=== PATIENT | male | born 1965 | race Caucasian/White ===

== ENCOUNTER 2019-12-11 10:43 | Emergency (ER) | payer OTHER, SELFPAY ==
[2019-12-11 10:54] VITALS: BP 112/72; PULSE 88; RESP 20; TEMP 37.2; O2SAT 97
--- NOTE | 2019-12-11 11:41 | ED.BACK ---
HPI - Back Pain/Injury General Chief Complaint: Back Pain/Injury Stated Complaint: Back Pain Time Seen by Provider: 12/11/19 11:38 Source: patient and RN notes reviewed Mode of arrival: ambulatory Limitations: no limitations History of Present Illness HPI Narrative: 54-year-old male presents with concern for left posterior shoulder strain. Reports 6 days ago he was pulling down an attic door and felt a sudden pain in his left shoulder blade. He reports since then he has been using Advil, heat with only temporary relief. He reports these measures will dull and ease the pain, however it does not go away. He reports finding a difficult position sleeping. He denies shortness of breath, chest pain, diaphoresis. Reports tingling in the left arm. MD elicited complaint: other (Shoulder pain) Related Data Home Medications Medication Instructions Recorded Confirmed diphenhydramine HCl 25 mg capsule 25 mg PO Q6H PRN 08/22/19 12/11/19 loperamide 2 mg capsule 2 mg PO Q2-4H PRN 08/22/19 12/11/19 loratadine 5 mg-pseudoephedrine ER 1 tablet PO Q12H 08/22/19 12/11/19 120 mg tablet,extended release,12hr tadalafil 5 mg tablet 5 mg PO DAILY 08/22/19 12/11/19 Allergies Allergy/AdvReac Type Severity Reaction Status Date / Time No Known Allergies Allergy Verified 12/11/19 10:59 Review of Systems Review of Systems: Narrative: CONSTITUTIONAL: Denies malaise, chills, sweats, or fever. CARDIOVASCULAR: Denies chest pain, palpitations, or edema. RESPIRATORY: Denies cough or dyspnea. GASTROINTESTINAL: Denies abdominal pain, nausea, vomiting, diarrhea SKIN: Denies redness, bruising, rash or itching. MUSCULOSKELETAL: Reports posterior left shoulder blade pain NEUROLOGIC: Denies weakness, reports tingling in the left arm, denies numbness All systems reviewed & are unremarkable except as noted in HPI and below PMFSH Past Medical History Medical History (Updated 12/11/19 @ 11:51 by Nini Edwards NP) Diverticulosis Family History Family History (Updated 04/25/16 @ 23:21 by DOCTOR UNKNOWN) Mother Patient's mother is in good health Father Family history of diabetes mellitus in first degree relative Other Diabetes mellitus Family history of cardiovascular disease Hypertension Social History Social History Smoking status: Never smoker Alcohol intake: never Comments At time of signature, agree with nursing past medical, surgical, social and family history. There is no relevant family history pertinent to the presenting complaint Exam Narrative: Exam Narrative: GENERAL: Well-appearing, well-nourished, and in no acute distress. HEAD: Normocephalic, atraumatic. EYES: PERRLA and EOMI. NECK: Supple. No lymphadenopathy. CHEST: Clear to auscultation. No respiratory distress. HEART: Regular rate and rhythm. Distal pulses palpable and equal, cap refill <3 seconds MUSCULOSKELETAL: Normal range of motion and strength in all extremities; 5/5 strength with shoulder flexion and extension. Normal sensation in dermatomal distributions with sensitivity to light touch and pain. No midline back tenderness to palpation. No paraspinal tenderness. Transfers from lying to sitting to standing. SKIN: Warm, dry, no rash. No ecchymosis, erythema, open wounds to back. NEURO: No focal deficits. Alert and oriented x3. Reflexes intact. Normal gait. PSYCH: Normal mood and affect Course Course Emergency Course: Patient is aware of diagnosis, understands and agrees to treatment plan. Anticipatory guidance given. Patient agrees to follow-up as directed and is aware of reasons to seek care at the emergency department. Portions of this record may have been created with voice recognition software Vital Signs Vital signs: Vital Signs Temperature 99 F 12/11/19 10:54 Pulse Rate 88 12/11/19 10:54 Respiratory Rate 20 12/11/19 10:54 Blood Pressure 112/72 12/11/19 10:54 Pulse Oximetry 97
== END 2019-12-11 11:55 | disposition home or self-care (01) ==
PROVIDERS: Emergency Provider Nurse Practitioner; PCP Family Medicine
DX: M25.512 Pain in left shoulder (principal); N40.0 Benign prostatic hyperplasia without lower urinary tract symptoms
CPT/HCPCS: 99213; G0463

== ENCOUNTER 2020-08-10 10:23 | Outpatient (CLI) | payer OTHER, SELFPAY ==
--- NOTE | ~2020-08-10 | CT_ITS ---
EXAMINATION: CT abdomen pelvis wo con EXAM DATE: 08/10/2020 10:46 INDICATION: R10.32 - Left lower quadrant pain . TECHNIQUE: Spiral CT of the abdomen and pelvis was performed without contrast. Axial, coronal and sag ittal images were reviewed. The dose-length product (DLP) for this examination was 1324.01 mGy-cm. The exposure was tailored according to patient size (auto mA exposure control), and iterative reconst ruction (ASIR) was used as additional dose reduction technique. Comparison is made to prior examinati on from 07/21/2013. FINDINGS: There is no nephrolithiasis or hydronephrosis. The prostate is unremarkable. The bladder is unremarkable. The liver, spleen, adrenal glands and pancreas are unremarkable. Gallbladder is u nremarkable. No biliary obstruction. There is no retroperitoneal or pelvic lymphadenopathy. Small u mbilical, left inguinal fat-containing hernias. The appendix is normal. There is mild scattered colonic diverticulosis. There is no adjacent inflamm atory change to suggest diverticulitis. The stomach and small bowel are unremarkable. There is expec champ amount of colonic stool. No free intraperitoneal gas. The heart is normal in size. There are no pericardial or pleural effusions. The lung bases are unremarkable. The bones are unremarkable. IMPRESSION: 1. Small umbilical, left inguinal fat-containing hernias. 2. Mild colonic diverticulosis. Reviewed, dictated and finalized at location B. [facility]
== END 2020-08-10 10:24 | disposition home or self-care (01) ==
PROVIDERS: PCP Family Medicine; Visit Provider Family Medicine
DX: R10.32 Left lower quadrant pain (principal); K40.90 Unilateral inguinal hernia, without obstruction or gangrene, not specified as recurrent; K42.9 Umbilical hernia without obstruction or gangrene; K57.30 Diverticulosis of large intestine without perforation or abscess without bleeding
CPT/HCPCS: 74176

== ENCOUNTER 2021-03-19 10:11 | Emergency (ER) | payer OTHER, SELFPAY ==
--- NOTE | 2021-03-19 10:13 | ED.EXTPRO ---
HPI - Extremity Problem General Chief complaint: Extremity Problem,Nontraumatic Stated complaint: right calf pain Time Seen by Provider: 03/19/21 10:14 Source: patient and RN notes reviewed History of Present Illness HPI Narrative: Patient is a 55-year-old male who presents the urgent care with complaints of right calf pain. Patient states that at softball he went to take off running and felt a pop in the back of the calf. Patient states that it is excruciating pain to bear any weight and he has been taking Aleve, elevating with ice, and using crutches. Patient states the calf seems really hard . Patient denies of any fall. Denies of any blunt force trauma to the leg. No other acute complaints. No acute distress noted. Patient aware of the plan of care. Some parts of this dictation were generated by voice recognition software and may contain typographical and/or grammatical inaccuracies. Related Data Home Medications Medication Instructions Recorded Confirmed tadalafil 5 mg tablet 5 mg PO DAILY 08/22/19 03/19/21 Allergies Allergy/AdvReac Type Severity Reaction Status Date / Time No Known Allergies Allergy Verified 08/10/20 09:34 Review of Systems Review of Systems: Narrative: CONSTITUTIONAL: Denies fever, chills, or sweats. EYES: Denies visual changes, redness, or discharge. ENT: Denies rhinorrhea, congestion, sore throat, or otalgia. CARDIOVASCULAR: Denies chest pain, palpitations, or edema. RESPIRATORY: Denies cough or dyspnea. GASTROINTESTINAL: Denies abdominal pain, nausea, vomiting, or diarrhea. GENITOURINARY: Denies dysuria or hematuria. SKIN: Denies rash or itching. MUSCULOSKELETAL: Reports of severe right calf pain NEUROLOGIC: Denies headache, numbness, or weakness. All other systems reviewed are negative, except as documented in HPI. [facility] Past Medical History Medical History (Updated 03/19/21 @ 10:29 by JESS Valente) Diverticulosis Family History Family History (Updated 04/25/16 @ 23:21 by DOCTOR UNKNOWN) Mother Patient's mother is in good health Father Family history of diabetes mellitus in first degree relative Other Diabetes mellitus Family history of cardiovascular disease Hypertension Social History Social History (Updated 08/10/20 @ 09:35 by Keysha Mcneal) Smoking status: Never smoker Second hand tobacco smoke exposure: No Alcohol intake: never Substance use: never Substance use type: does not use Gender identity (if verbalized by the patient): Male Comments At the time of my signature, I reviewed and agree with the nursing past medical, surgical, social, and family history. There is no relevant family history pertinent to the patient complaint. Exam Narrative: Exam Narrative: GENERAL: This is a well-nourished, well-developed patient, in no apparent distress. HEAD: normocephalic, atraumatic. EYES: PERRL. Sclera clear/white. Vision is grossly intact. EARS: External ears normal NOSE: External nose normal with no obvious nasal discharge, nares without redness, no rhinorrhea. THROAT: Mucous membranes moist NECK: Neck supple CARDIOVASCULAR: Regular rate and rhythm without murmurs, gallops, or rubs. RESPIRATORY: Clear to auscultation. Breath sounds equal bilaterally. No wheezes, rales, or rhonchi. SKIN: warm, intact with no suspicious lesions or rash, good texture and turgor. NEURO: awake, alert, and oriented to person, place and time. There were no obvious focal neurologic abnormalities. EXTREMITIES: Mild bilateral nonpitting edema to lower ankles. No obvious bruising, erythema, or edema noted to the right calf. Firmness to the right calf. Range of motion to right lower extremity within normal limits. Positive strong right pedal pulse with capillary refill less than 2 seconds. Course Vital Signs Vital signs: Vital Signs Temperature 98.9 F 03/19/21 10:21 Pulse Rate 108 H 03/19/21 10:21 Respiratory Rate 24 H 03/19/21 10:21
[2021-03-19 10:21] VITALS: BP 147/91; PULSE 108; RESP 24; TEMP 37.2; O2SAT 97
== END 2021-03-19 10:37 | disposition home or self-care (01) ==
PROVIDERS: Emergency Provider Nurse Practitioner Family; PCP Family Medicine
DX: S86.111A Strain of other muscle(s) and tendon(s) of posterior muscle group at lower leg level, right leg, initial encounter (principal); X50.9XXA Other and unspecified overexertion or strenuous movements or postures, initial encounter; Y93.64 Activity, baseball
CPT/HCPCS: 99213; G0463

== ENCOUNTER 2023-08-28 10:05 | Emergency (ER) | payer OTHER, SELFPAY ==
--- NOTE | 2023-08-28 10:12 | ED.GENADULT ---
HPI - General Adult General Chief complaint: Upper Respiratory Infection Stated complaint: Headache,Congestion,Cough Source: patient, RN notes reviewed and old records reviewed Mode of arrival: ambulatory Limitations: no limitations History of Present Illness HPI narrative: 57-year-old male presents to [facility] with complaint sinus congestion, cough, myalgia, irritated throat, and pain with coughing that started yesterday. Patient states taking DayQuil for symptoms. Patient denies shortness of breath, chest pain, fevers, nausea vomiting, or weakness. Related Data Home Medications Medication Instructions Recorded Confirmed tadalafil 5 mg tablet (Cialis) 5 mg PO DAILY 08/22/19 08/28/23 Allergies Allergy/AdvReac Type Severity Reaction Status Date / Time No Known Allergies Allergy Verified 08/28/23 10:06 Review of Systems Constitutional: Constitutional: Reports no additional constitutional complaints, Denies fatigue, Denies fever(s) and Denies weakness Eyes: Eyes: Reports no additional eye complaints ENT: Reports nasal congestion and Reports sore throat Cardiovascular: Cardiovascular: Reports no additional cardiovascular complaints Respiratory: Respiratory: Reports chest congestion, Reports cough, Denies dyspnea and Denies wheezing Neurologic: Reports system reviewed and no additional complaints, except as documented [facility] Past Medical History Medical History Collagenous colitis Decreased libido Diverticulosis Enlarged nevus Rupture of right gastrocnemius muscle Wears glasses Surgical History Surgical History H/O: vasectomy Family History Family History Mother Patient's mother is in good health Father Family history of diabetes mellitus in first degree relative Other Diabetes mellitus Family history of cardiovascular disease Hypertension Social History Social History Smoking status: Current every day smoker Tobacco type: smokeless tobacco Second hand tobacco smoke exposure: No Alcohol intake: current Drinks per week: 2 Substance use: never Substance use type: does not use Living arrangements: with family Occupation/Education: occupation Gender identity (if verbalized by the patient): Male Sexual Orientation (if Verbalized by the Patient): Straight or Heterosexual Comments At the time of my signature, I reviewed and agree with the nursing past medical, surgical, social, and family history. There is no relevant family history pertinent to the patient complaint. Exam Const: General: cooperative, healthy appearing, no acute distress and well nourished Nutritional Appearance: well nourished Orientation/consciousness: patient oriented x3 Limitations: no limitations HENMT: Head: normal to inspection and normocephalic Ears: external ears normal, TM's normal bilaterally, mastoids normal and Abnormal EAC present Face/Nose/Sinus: normal facial exam Face and sinus: normal facial exam Mouth: Yes Normal oral and palatal mucosa present, Yes oropharynx normal and Yes moist mucous membranes Throat: tonsils normal, uvula midline and no uvular edema Eyes: General: appearance normal, both eyes and all related structures Sclera: sclerae normal Pupils: Equal, round and reactive pupils present Resp: Effort & Inspection: normal respiratory effort, able to speak in complete sentences, no audible wheezes, no cough, no respiratory distress and no retractions Auscultation: clear to auscultation bilaterally, no crackles, no rales, no rhonchi and no wheezes Cardio: Rate: regular rate Rhythm: regular rhythm Skin: General skin exam: normal color and no rashes or lesions noted Neuro: General: patient oriented x3 Cranial nerves: Yes Equal, round and reactive p
[2023-08-28 10:17] VITALS: BP 147/79; PULSE 105; RESP 20; TEMP 36.9; O2SAT 97
== END 2023-08-28 10:36 | disposition home or self-care (01) ==
PROVIDERS: Emergency Provider Registered Nurse; PCP Family Medicine
DX: J02.0 Streptococcal pharyngitis (principal); Z20.822 Contact with and (suspected) exposure to COVID-19; F17.290 Nicotine dependence, other tobacco product, uncomplicated; Z98.52 Vasectomy status
CPT/HCPCS: 87426; 87804; 87880; 99213; C9803; G0463

== ENCOUNTER 2024-12-31 09:09 | Outpatient (CLI) | payer OTHER, SELFPAY ==
--- OUTSIDE RECORDS SUMMARY | 2024-12-31 09:17 | XMS_ITS | Referral Summary ---
Author Organization [facility] [address] Address [address] [place] [address] Care Team Providers Care Well Testing Operator Name Role Phone Zoltan Henry MD Primary Care Provider Allergies No known active allergies Medications tadalafiL (CIALIS) 5 mg tablet 04/08/2020 Active montelukast (SINGULAIR) 10 mg tablet 03/05/2020 Active rosuvastatin (CRESTOR) 10 mg tablet 04/09/2020 Active loratadine (CLARITIN) 10 mg tablet Take 1 tablet (10 mg total) by mouth daily Active diphenhydrAMINE (BENADRYL) 25 mg capsule Take 1 tablet/caps ule (25 mg total) by mouth 2 (two) times a day Active loperamide HCl (IMODIUM A-D ORAL) Take by mouth Active aspirin 81 mg enteric coated tablet Take 1 tablet (81 mg total) by mouth daily Active multivitamin-min erals-lutein (Multivitamin 50 Plus) tablet Take by mouth Active triamcinolone (KENALOG) 0.1 % creamIndications :Chronic eczematous otitis externa of both ears Apply to both ears BID x 14 days then as needed 30 g 2 10/18/2024 Active Active Problems Problem Noted Date Diagnosed Date Chronic eczematous otitis externa of both ears 0 03/22/2024 Pre-syncope 05/23/2020 Chest pain 05/23/2020 Equivocal stress test 05/23/2020 Palpitations 05/23/2020 Hyperlipidemia LDL goal <100 05/23/2020 Social History Tobacco Use Types Packs/Day Years Used Date Smoking Tobacco: Never Smokeless Tobacco: Current Chew Alcohol Use Standard Drinks/Week Comments Yes 1 (1 standard drink = 0.6 oz pur e alcohol) Sex and Gender Information Value Date Recorded Sex Assigned at Not on file Legal Sex Male 9:07 AM CDT Gender Identity Not on file Sexual Orientation Not on file Last Filed Vital Signs Vital Sign Reading Time Taken Comments Blood Pressure 118/84 05/23/2020 8:16 AM CDT Pulse 92 05/23/2020 8:16 AM CDT Temperature 36.6 C (97.8 F) 06/19/2020 8:15 AM CDT Respiratory Rate 20 03/22/2024 12:1 3 PM CDT Oxygen Saturation 96% 05/23/2020 8:16 AM CDT Inhaled Oxygen Concentration - - Weight 106.6 kg (235 lb 0.2 oz) 024 12:13 PM CDT Height 180.3 cm (5' 11 ) 03/22/2024 12: 13 PM CDT Body Mass Index 32.78 03/22/2024 12:13 PM CDT Plan of Treatment Not on file Insurance [facility] Care Teams Well Testing Operator Relationship Specialty Start Date End Date Zoltan Henry MD [address] [facility] [address] [place] [address] PCP - General Family Medicine 02/06/20
--- OUTSIDE RECORDS SUMMARY | 2024-12-31 09:17 | XMS_ITS | Clinical Summary ---
Author Organization [facility] Address [address] [place] [address] Care Team Providers Care Vacuum Cooker Operator Name Role Phone Zoltan Henry MD Primary Care Provider [phone] Source Comments [facility],non-owned Affiliates and Associated Physician Practices is amultiple site organization consisting of ambulatory clinics and hospital sitesin [place], [place], [place] and [place]. This disclosure is being madepursuant to the Care Everywhere program and may not contain all information available regarding this patient. Last updated 18.[facility] [employer] Social History Tobacco Use Types Packs/Day Years Used Date Smoking Tobacco: Never Assessed Sex and Gender Information Value Date Recorded Sex Assigned at Not on file Gender Identity Not on file Sexual Orientation Not on file Plan of Treatment Health Maintenance Due Date Last Done Comments COLOGUARD (AGES 45-75) - COL ON CA SCREENING 1965 COLON MONITORING 1965 COLONOSCOPY - COLON CA SCREENING 1965 CT COLONOGRAPHY - COLON CA SCREENING 1965 Colorectal Cancer Screening 1965 FIT - COLON CA SCREENING 1965 FLEX SIG - COLON CA SCREENING 1965 LIPID TESTING 1965 HIV SCREENING 1980 HEPATITIS C SCREENING 11/28/1983 DTAP/TDAP/TD VACCINES (1 - Tdap) 1984 HEPATITIS B VACCINE (1 of 3 - 19+ 3-dose series) 1984 PNEUMOCOCCAL VACCINE 50+ (1 of 1 - PCV) 12/03/2015 ZOSTER VACCINE (1 of 2) 12/03/2015 COVID-19 VACCINE ( - 2023-2 5 season) 2024 INFLUENZA VACCINE (#1) 2024 DEPRESSION SCREENING 09/28/2024 HIB VACCINE Aged Out No longer eligi ble based on patient's age to complete this topic HPV VACCINE Aged Out No longer eligi ble based on patient's age to complete this topic MENINGOCOCCAL (Group B) VACC INE SHARED DECISION-MAKING Aged Out No longer eligibl e based on patient's age to complete this topic MENINGOCOCCAL GROUPS A/C/Y/W VACCINE Aged Out No longer eligible b ased on patient's age to complete this topic PNEUMOCOCCAL VACCINE Aged Out No long er eligible based on patient's age to complete this topic Care Teams Vacuum Cooker Operator Relationship Specialty Start Date End Date Zoltan Henry MD [address] [place] [address] PCP - General 10/06/18
--- OUTSIDE RECORDS SUMMARY | 2024-12-31 09:17 | XMS_ITS | Clinical Summary ---
Author Organization [facility] [place] [address] Address [address] [place] [address] Care Team Providers Care Pet Handler Name Role Phone Zoltan Henry MD Primary [...] Palpitations 05/23/2020 Hyperlipidemia LDL goal <100 05/23/2020 Surgical History Surgery Date Site/Laterality Comments VASECTOMY EYE SURGERY PKR Medical History Medical History Date Comments Allergic rhinitis Ear problems Tinnitus Family History Medical History Relation Name Comments Cancer Father Diabetes Father Prostate cancer Father No Known Problems Mother Diabetes Paternal Grandmother Relation Name Status Comments Father (Age 70) Mother Alive Paternal Grandmother Sister Alive Social History Tobacco Use Types Packs/Day Years Used Date Smoking Tobacco: Never Smokeless Tobacco: Current Chew Alcohol Use Standard Drinks/Week Comments Yes 1 (1 standard drink = 0.6 oz pur e alcohol) Sex and Gender Information Value Date Recorded Sex Assigned at Not on file Legal Sex Male 9:07 AM CDT Gender Identity Not on file Sexual Orientation Not on file Obstetrics History Last Filed Vital Signs Vital Sign Reading [...] 03/22/2024 12:13 PM CDT Plan of Treatment Health Maintenance Due Date Last Done Comments Colon Cancer Screening-Colonoscopy 1965 Depression Screening 1965 Hepatitis C Screening 1965 Prostate Cancer Screening-PSA 1965 DTaP/Tdap/Td Vaccine (1 - Tdap) 1976 Hepatitis B Screening 12/03/1983 Regular Well Visit/Exam 18-64 12/03/1983 Zoster Vaccine (1 of 2) 12/03/2015 Influenza Vaccine (#1) 2024 9, 07/21/2018, 08/25/2017, Additional history exists Pneumococcal vaccine <65 Aged Out No longer eligible based on patient's age to complete this topic Insurance [facility] CLAIMS Member Subscriber Plan / Payer ( fective 2020-Present) Name:Demarcus Whiteside Relation to Subscriber:Self Name:Demarcus Whiteside Payer ID:[id number] (NAIC) Group ID:Not on file Type: Address: [address] [facility] Member Subscriber Plan / Payer ( fective 2023-Present) Name:Demarcus Whiteside Relation to Subscriber:Self Name:Demarcus Whiteside Payer ID:[id number] (NAIC) Group ID:Not on file Type: Address: [place] [id number] Care Teams Pet Handler Relationship Specialty Start Date End Date Zoltan Henry MD [address] [facility] [address] [place] [address] PCP - General Family Medicine 02/06/20
--- OUTSIDE RECORDS SUMMARY | 2024-12-31 09:17 | XMS_ITS | Encounter Summary ---
Author Organization [facility] Address [address] [place] [address] Care Team Providers Care Cold Roller Name Role Phone Zoltan Henry MD Primary Care Provider [phone] Encounter Details Date Type Department Care Team (Late st Contact Info) Description 10/16/2023 Lab Requisition [facility] - DermPath Lab [address] [address], [place] [address] Amando Fowler MD [facility] DERMATOLOGY [address] [place] [phone] Dermatitis, unspecified Social History Tobacco Use Types Packs/Day Years Used Date Smoking Tobacco: Never Assessed Sex and Gender Information Value Date Recorded Sex Assigned at Not on file Gender Identity Not on file Sexual Orientation Not on file documented as of this encounter Plan of Treatment Not on file documented as of this encounter Procedures Procedure Name Priority Date/Time Associated Diagnosis Comments DERMATOPATHOLOGY Routine 10/15/2023 3:33 AM MANAGER OF INFORMATION Dermatitis, unspecified documented in this encounter Results * DERMATOPATHOLOGY (10/15/2023 3:33 AM MANAGER OF INFORMATION) Case Report Dermatopathology Report Case: [id number] Authorizing Provider: Amando Fowler MD Collected: 10/15/2023 03:33 AM Ordering Location: [facility] DermPath Lab Received: 10/17/2023 11:21 AM Pathologist: Nancy Delgadlilo MD Specimen: Skin, left postauricular skin 12:20 PM MANAGER OF INFORMATION DERMATOPATHOLOGY LABORATORY Final Diagnosis Specimen A. 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 Eczema vs Seborrheic Dermatitis 12:20 PM [facility] DERMATOPATHOLOGY LABORATORY Gross Description Specimen A: Received is one formalin filled container labeled with the patient's name and designated left postauricular skin. The specimen consists of a shave biopsy measuring 9x6x2 mm. Jar 0. 12:20 PM [facility] DERMATOPATHOLOGY LABORATORY Microscopic Description Specimen A. SKIN, left postauricular skin: There is focal parakeratosis and spongiosis of the epidermis. Foci of intracorneal neutrophils and rare intraepidermal Langerhans cell microabscesses are present. In the dermis there is a mainly superficial perivascular lymphoid infiltrate. Focal interface changes are noted. Sections show a perifollicular lymphohistiocytic infiltrate. Eosinophils are not seen. Intrafollicular bacteria and Demodex mites are present. Grocott's methenamine silver (GMS) stain is negative for fungal elements in the sections examined. COMMENT: The histologic differential diagnosis includes seborrheic dermatitis, eczematous dermatitis, and less likely a hypersensitivity reaction, such as to contact and drug given the lack of eosinophils. A superimposed component of bacterial or Demodex folliculitis cannot be excluded. 12:20 PM [facility] DERMATOPATHOLOGY LABORATORY Disclaimer An external and internal positive and negative controls are appropriate for the histochemical, immunohistochemical and immunofluorescence stain(s) in this case (if any), except where stated explicitly. The performance characteristics of the stain(s) cited in this report were developed and its performance characteristic determined by the Dermatopathology Laboratory at [facility], directed by Dr. Brendan Amor. These tests need not be, and therefore are not, approved by the [place] Food and Drug Administration. The tests are used for clinical purposes. Billing Codes Specimen Charges Stain Charges 21213 1 48488 1 12:20 PM [facility] DERMATOPATHOLOGY LABORATORY Embedded Images 12:20 PM [facility] DERMATOPATHOLOGY LABORATORY Pathology/Cytolo gy TISSUE SPECIMEN FROM SKIN / Unknown 10/15/2023 3:33 AM MANAGER OF INFORMATION 10/17/2023 11:21 AM MANAGER OF INFORMATION Amando Fowler MD LAB - PATHOLOGY/CYTO LOGY ORDERABLES DERMATOPATHOLOGY LABORATORY [facility] - Department of Dermatology [facility] Medicine [address] [place] [address], [address] [phone] documented in this encounter Visit Diagnoses Diagnosis Dermatitis, unspecified documented in this encounter Care Teams Cold Roller Relationship Specialty Start Date End Date Zoltan Henry MD [address] [place] [address] PCP - General 10/06/18 documented as of this encounter
--- OUTSIDE RECORDS SUMMARY | 2024-12-31 09:17 | XMS_ITS | Clinical Summary ---
Author Organization [facility] Address [facility]ly [facility] [place] [address] Care Team Providers Care Prefitter Name Role Phone Zoltan Henry MD Primary Care Provider [phone] Social History Tobacco Use Types Packs/Day Years Used Date Smoking Tobacco: Never Assessed Sex and Gender Information Value Date Recorded Sex Assigned at Not on file Legal Sex Male 6:07 PM CDT Gender Identity Not on file Sexual Orientation Not on file Plan of Treatment Health Maintenance Due Date Last Done Comments Colorectal Cancer Screening Colonoscopy (10 Years) 1965 Annual Physical 1968 Hepatitis C 12/03/1983 DTaP, Tdap and Td Vaccines ( 1 - Tdap) 1984 Hepatitis B Vaccines (1 of 3 - 19+ 3-dose series) 1984 Zoster Vaccines (1 of 2) 12/03/2015 COVID-19 Vaccine (2023-2 5 season) 2024 Influenza Adult (#1) 2024 Meningococcal B Vaccine Aged Out No l onger eligible based on patient's age to complete this topic Meningococcal Vaccine Aged Out No deysi moises eligible based on patient's age to complete this topic Pneumococcal Vaccine: Pediat rics (0 to 5 Years) and At-Risk Patients (6 to 64 Years) Aged Out No longer eligible b ased on patient's age to complete this topic RSV Immunizations Under 20 Months Aged Out No longer eligible based on patient's age to complete this topic Care Teams Prefitter Relationship Specialty Start Date End Date Zoltan Henry MD [address] [place] [address] PCP - General 07/21/13
[2024-12-31 09:51] LABS: Hematocrit 42.5 % (42.0-52.0); Hemoglobin 14.8 g/dL (14.0-18.0); Mean Corpuscular HGB Conc 34.8 g/dl (32-36); Mean Corpuscular Hemoglobin 30.8 pg (26-34); Mean Corpuscular Volume 88.5 fl (80-100); Mean Platelet Volume 9.2 fl (7.4-10.4); Platelet Count Result 230 k/mm3 (150-375); Red Cell Distribution Width 11.8 % (11.5-14.5); White Blood Count 5.8 K/mm3 (4.5-10.0)
[2024-12-31 09:58] LABS: Add Urine Microscopic? YES; Appearance Urine Clear (Clear); Bilirubin Urine Negative (Negative); Blood Urine Negative (Negative); Color Urine Dark Yellow (Yellow); Glucose Urine UA Negative (Negative); Ketones Urine Negative (Negative); Leukocyte Esterase Ur Negative LEU/UL (Negative); Nitrate Urine Negative (Negative); Protein Urine Negative (Negative); Specific Grav Ur 1.021 (1.001-1.035)
[2024-12-31 10:19] LABS: Alanine Aminotransferase 58 U/L (6-50); Albumin Level 4.3 g/dL (3.5-5.1); Alkaline Phosphatase 74 U/L (38-126); Anion Gap 8 mmol/L (4-12); Aspartate Amino Transferase 41 U/L (17-59); Bilirubin,Total 2.4 mg/dL (0.2-1.3); Blood Urea Nitrogen 11 mg/dL (9-20); Calcium 8.8 mg/dL (8.4-10.2); Carbon Dioxide 28 mmol/L (22-30); Chloride 106 mmol/L (98-107); Cholesterol 143 mg/dL (0-200); Estimated Glomerular Filt Rate > 60; Glucose 90 mg/dL (65-110); HDL Direct 33 mg/dL; Potassium 3.7 mmol/L (3.4-5.0); Sodium 142 mmol/L (137-145); Triglycerides 146 mg/dL (<150)
[2024-12-31 10:31] LABS: LDL Cholesterol Direct 86 mg/dL
== END 2024-12-31 09:10 | disposition home or self-care (01) ==
LOC: ANHLAB 09:16
PROVIDERS: PCP Family Medicine; Visit Provider Physician Assistant
DX: Z00.00 Encounter for general adult medical examination without abnormal findings (principal); E78.5 Hyperlipidemia, unspecified; N40.0 Benign prostatic hyperplasia without lower urinary tract symptoms; N52.9 Male erectile dysfunction, unspecified
CPT/HCPCS: 36415; 80053; 80061; 81001; 84443; 85027

== ENCOUNTER 2025-02-21 00:15 | Day surgery (SDC) | payer OTHER, SELFPAY ==
[2025-02-14 14:56] VITALS: BMI 32.1
--- OUTSIDE RECORDS SUMMARY | 2025-02-21 00:22 | XMS_ITS | Referral Summary ---
Author Organization [facility] [address] Address [address] [place] [address] Care Team Providers Care Cooker Operator Name Role Phone Zoltan Henry [...] Plan of Treatment Not on file Insurance [facility] Care Teams Cooker Operator Relationship Specialty Start Date End Date Zoltan Henry MD [address] [facility] [address] [place] [address] PCP - General Family Medicine 02/06/20
--- OUTSIDE RECORDS SUMMARY | 2025-02-21 00:22 | XMS_ITS | Encounter Summary ---
Author Organization [facility] Address [address] [place] [address] Care Team Providers Care Quality Process Lead Name Role Phone Zoltan Henry MD Primary Care Provider [phone] Encounter Details Date Type Department Care Team (Late st Contact Info) Description 10/16/2023 Lab Requisition [facility] - DermPath Lab [address] [facility] [place] [address] Amando Fowler MD [facility] DERMATOLOGY [address] [place] [phone] Dermatitis, unspecified Social History Tobacco Use Types Packs/Day Years Used Date Smoking Tobacco: Never Assessed Sex and Gender Information Value Date Recorded Sex Assigned at Not on file Legal Sex Male 9:07 AM FISH CLEANER MACHINE TENDER Gender Identity Not on file Sexual Orientation Not on file documented as of this encounter Plan of Treatment Not on file documented as of this encounter Procedures Procedure Name Priority Date/Time Associated Diagnosis Comments DERMATOPATHOLOGY Routine 10/15/2023 3:33 AM FISH CLEANER MACHINE TENDER Dermatitis, unspecified documented in this encounter Results * DERMATOPATHOLOGY (10/15/2023 3:33 AM FISH CLEANER MACHINE TENDER) Case Report Dermatopathology Report Case: [id number] Authorizing Provider: Amando Fowler MD Collected: 10/15/2023 03:33 AM Ordering Location: [facility] DermPath Lab Received: 10/17/2023 11:21 AM Pathologist: Nancy Delgadillo MD Specimen: Skin, left postauricular skin 12:20 PM FISH CLEANER MACHINE TENDER DERMATOPATHOLOGY LABORATORY Final Diagnosis Specimen A. 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 Eczema vs Seborrheic Dermatitis 12:20 PM [facility] DERMATOPATHOLOGY LABORATORY Gross Description Specimen A: Received is one formalin filled container labeled with the patient's name and designated left postauricular skin. The specimen consists of a shave biopsy measuring 9x6x2 mm. Jar 0. 12:20 PM [facility] DERMATOPATHOLOGY LABORATORY Microscopic Description Specimen A. SKIN, [...] Demodex folliculitis cannot be excluded. 12:20 PM [facility] DERMATOPATHOLOGY LABORATORY Disclaimer An external and internal positive and negative controls are appropriate for the histochemical, immunohistochemical and immunofluorescence stain(s) in this case (if any), except where stated explicitly. The performance characteristics of the stain(s) cited in this report were developed and its performance characteristic determined by the Dermatopathology Laboratory at [facility], directed by Dr. Brendan Amor. These tests need not be, and therefore are not, approved by the [place] Food and Drug Administration. The tests are used for clinical purposes. Billing Codes Specimen Charges Stain Charges 68033 1 58143 1 12:20 PM [facility] DERMATOPATHOLOGY LABORATORY Embedded Images 12:20 PM FISH CLEANER MACHINE TENDER DERMATOPATHOLOGY LABORATORY Pathology/Cytolo gy TISSUE SPECIMEN FROM SKIN / Unknown 10/15/2023 3:33 AM FISH CLEANER MACHINE TENDER 10/17/2023 11:21 AM FISH CLEANER MACHINE TENDER us Amando Fowler MD LAB - PATHOLOGY/CYTOLOGY MOUSTAPHA VALLES Final Result DERMATOPATHOLOGY LABORATORY [facility] - Department of Dermatology [facility] Medicine [address] [place] [address], [address] [phone] documented in this encounter Visit Diagnoses Diagnosis Dermatitis, unspecified documented in this encounter Care Teams Quality Process Lead Relationship Specialty Start Date End Date Zoltan Henry MD [address] [place] [address] PCP - General 10/06/18 documented as of this encounter
--- OUTSIDE RECORDS SUMMARY | 2025-02-21 00:22 | XMS_ITS | Clinical Summary ---
Author Organization [facility] [address] Address [address] [place] [address] Care Team Providers Care District Fire Chief Name Role Phone Zoltan Henry MD Primary [...] Vaccine (1 of 2) 12/03/2015 Influenza Vaccine (Season Ended) 2025 07/26/2019, 07/21/2018, 08/25/2017, Additional history exists Pneumococcal vaccine <65 Aged Out No longer eligible based on patient's age to complete this topic Insurance [facility] Care Teams District Fire Chief Relationship Specialty Start Date End Date Zoltan Henry MD [address] [facility] [address] [place], [place] [id number] PCP - General Family Medicine 02/06/20
--- OUTSIDE RECORDS SUMMARY | 2025-02-21 00:23 | XMS_ITS | Clinical Summary ---
Author Organization [facility] Address [address] [place] [address] Care Team Providers Care It Security Specialist Name Role Phone Zoltan Henry MD Primary Care Provider [phone] [facility],non-owned Affiliates and Associated Physician Practices is amultiple site organization consisting of ambulatory clinics and hospital sitesin [place], [place], [place] and [place]. This disclosure is being madepursuant to the Care Everywhere program and may not contain all information available regarding this patient. 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
[2025-02-21 07:33] VITALS: BP 139/80; PULSE 92; RESP 18; TEMP 36.3; O2SAT 96; BMI 33.7
[2025-02-21] MEDS: LACTATED RINGERS 1,000 ML 150 ML IV CONT (07:43)
--- NOTE | 2025-02-21 07:43 | P.PNAN_ITS ---
Anes - Initial Pre Proc Eval Procedure: Operation Date: 02/21/25 09:00 Proposed Procedures p Colonoscopy - Isaac Calabrese MD Date/Time: 02/21/25 07:43 Surgeon: Isaac Calabrese MD Pre Op Diagnosis: Colitis Patient Data Age: 59 Gender: M Height: 1.8 m Weight: 109.6 kg Last Vital Signs Temp 97.4 F L 02/21/25 07:33 Pulse 92 02/21/25 07:33 Resp 18 02/21/25 07:33 BP 139/80 02/21/25 07:33 Pulse Ox 96 02/21/25 07:33 O2 Del Method Room Air 02/21/25 07:33 Allergies Allergy/AdvReac Type Severity Reaction Status Date / Time No Known Allergies Allergy Verified 02/21/25 07:32 Home Medications ?Medication ?Instructions ?Recorded ?Confirmed ?Type tadalafil 5 mg tablet (Cialis) 5 mg PO DAILY 08/22/19 02/14/25 History rosuvastatin 10 mg tablet 10 mg PO DAILY #90 tabs 03/21/24 02/21/25 Rx sertraline 50 mg tablet 50 mg PO DAILY #30 tabs 10/25/24 02/21/25 Rx montelukast 10 mg tablet See Rx Instructions .Route 12/13/24 02/21/25 Rx .COMPLEX #90 tabs sodium sul 1.479 gram-potas ch See Rx Instructions PO PER PKG DIR 02/14/25 02/21/25 Rx 0.188 gram-magnes sul 0.225 gram #24 tabs tablet (Sutab) Patient hx anesthesia problems: none Family hx anesthesia problems: none Results Review: All pre-operative results and documents have been reviewed as part of the pre- operative evaluation. [facility] Past Medical History Medical History Depression Enlarged nevus Decreased libido Collagenous colitis Rupture of right gastrocnemius muscle Wears glasses Diverticulosis Surgical History Surgical History H/O: vasectomy Family History Family History Mother Patient's mother is in good health Father Family history of diabetes mellitus in first degree relative Other Diabetes mellitus Family history of cardiovascular disease Hypertension Social History Social History Smoking status: Never smoker Tobacco type: smokeless tobacco Second hand tobacco smoke exposure: No Alcohol intake: current Drinks per week: 2 Substance use: never Substance use type: does not use Living arrangements: with family Occupation/Education: occupation Gender identity (if verbalized by the patient): Male Sexual Orientation (if Verbalized by the Patient): Straight or Heterosexual Anes - Eval Final PreProcedure Day of Procedure 02/21/25 07:43 Patient weight: obese Heart: regular rate and rhythm Lungs: clear to auscultation Airway: Mallampati scale class II Neurological: alert and oriented Last oral intake: >/= 8 hours ASA classification: II Emergent: no Anesthetic plan: proceed Anesthesia type and monitoring: general GIVS and standard monitoring Results Review: All pre-operative results and documents have been reviewed as part of the pre- operative evaluation. Informed Consent: The patient's anesthetic plan and its attendant risks and benefits were discussed with the patient/family/POA. Questions were solicited and answers provided to the satisfaction of the patient/family/POA.
--- NOTE | 2025-02-21 08:48 | PM.HPGS ---
History of Present Illness History of Present Illness Consent: Risks, benefits, and alternatives have been discussed and questions answered. Patient agrees to proceed with procedure. Chief complaint: abdominal pain Narrative: Demarcus Whiteside is a 59 year old male with last colonoscopy 2017 that showed mild microscopic colitis, intermittent lower abdominal pain Review of Systems Review of Systems: All systems reviewed & are unremarkable except as noted in HPI and below PMFSH Past Medical History Medical History (Updated 02/21/25 @ 08:49 by Isaac Calabrese MD) Lower abdominal pain Depression Enlarged nevus Decreased libido Collagenous colitis Rupture of right gastrocnemius muscle Wears glasses Diverticulosis Surgical History Surgical History H/O: vasectomy Family History Family History Mother Patient's mother is in good health Father Family history of diabetes mellitus in first degree relative Other Diabetes mellitus Family history of cardiovascular disease Hypertension Social History Social History Smoking status: Never smoker Tobacco type: smokeless tobacco Second hand tobacco smoke exposure: No Alcohol intake: current Drinks per week: 2 Substance use: never Substance use type: does not use Living arrangements: with family Occupation/Education: occupation Gender identity (if verbalized by the patient): Male Sexual Orientation (if Verbalized by the Patient): Straight or Heterosexual Meds Home Medications and Allergies Home Medications ?Medication ?Instructions ?Recorded ?Confirmed ?Type tadalafil 5 mg tablet (Cialis) 5 mg PO DAILY 08/22/19 02/14/25 History rosuvastatin 10 mg tablet 10 mg PO DAILY #90 tabs 03/21/24 02/21/25 Rx sertraline 50 mg tablet 50 mg PO DAILY #30 tabs 10/25/24 02/21/25 Rx montelukast 10 mg tablet See Rx Instructions .Route 12/13/24 02/21/25 Rx .COMPLEX #90 tabs sodium sul 1.479 gram-potas ch See Rx Instructions PO PER PKG DIR 02/14/25 02/21/25 Rx 0.188 gram-magnes sul 0.225 gram #24 tabs tablet (Sutab) Allergies Allergy/AdvReac Type Severity Reaction Status Date / Time No Known Allergies Allergy Verified 02/21/25 07:32 Vital Signs Vital Signs - 24 hr 02/21/25 07:33 Temperature 97.4 F L Pulse Rate 92 Respiratory Rate 18 Blood Pressure 139/80 Pulse Oximetry 96 Oxygen Delivery Room Air Exam Const: General: comfortable and no acute distress HENMT: Face/Nose/Sinus: Normal nares present Eyes: General: appearance normal, both eyes and all related structures Neck: Neck: no JVD Resp: Auscultation: clear to auscultation bilaterally Cardio: Rate: regular rate Rhythm: regular rhythm GI: Inspection: non-distended GI Palp: Yes Soft to palpation Skin: General skin exam: normal color Neuro: General: gait normal Speech: normal speech Extrem: General: normal to inspection Psych: Mental Status: mental status grossly normal Assessment and Plan Assessment and plan (1) Lower abdominal pain: Code(s): R10.30 - Lower abdominal pain, unspecified Status: Acute Assessment and Plan: colonoscopy consider random colon bx (h/o mild microscopic colitis in 2018)
[2025-02-21 09:09] VITALS: BP 94/52; PULSE 77; RESP 22; O2SAT 97
[2025-02-21 09:19] VITALS: BP 124/59; PULSE 69; RESP 15; O2SAT 97
[2025-02-21 09:29] VITALS: BP 123/65; PULSE 68; RESP 14; O2SAT 97
== END 2025-02-21 09:36 | disposition home or self-care (01) ==
PROVIDERS: PCP Family Medicine; Referring Provider Physician Assistant; Visit Provider Internal Medicine Gastroenterology
PROC: 0DJD8ZZ Inspection of Lower Intestinal Tract, Via Natural or Artificial Opening Endoscopic (ICD-10-PCS; CPT 45378; principal; 2025-02-21 09:00)
DX: K64.8 Other hemorrhoids (principal); K57.30 Diverticulosis of large intestine without perforation or abscess without bleeding; F32.A Depression, unspecified; E66.9 Obesity, unspecified; Z68.33 Body mass index [BMI] 33.0-33.9, adult; Z98.890 Other specified postprocedural states; Z87.19 Personal history of other diseases of the digestive system; Z82.49 Family history of ischemic heart disease and other diseases of the circulatory system
CPT/HCPCS: 45380; 88305; J2003; J2704; J7120

== ENCOUNTER 2025-08-11 11:41 | Outpatient (CLI) | payer OTHER, SELFPAY ==
--- NOTE | ~2025-08-11 | XR_ITS ---
EXAMINATION: XR sacrum coccyx min 2V DATE: 08/11/2025 12:15 INDICATION: Sacrococcygeal disorder TECHNIQUE: 3 views of the sacrum and coccyx were obtained. COMPARISON: CT dated 08/10/2020 and 07/21/2013 FINDINGS: Chronic anterior and rightward angulation of the coccyx. Bone alignment is otherwise normal. No fractures identified. 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 Mild lower lumbar spondylosis. IMPRESSION: 1. Anterior and rightward angulation of the coccyx which appears unchanged dating back to CT dated 07/21/2013 potentially either developmental or sequela of old trauma. No acute osseous abnormality. Reviewed, dictated and finalized at location A. TION PROJECT ENGINEER IMPRESSION: 1. Anterior and rightward angulation of the coccyx which appears unchanged dati ng back to CT dated 07/21/2013 potentially either developmental or sequela of o ld trauma. No acute osseous abnormality.
== END 2025-08-11 11:42 | disposition home or self-care (01) ==
PROVIDERS: PCP Family Medicine
DX: M43.8X8 Other specified deforming dorsopathies, sacral and sacrococcygeal region (principal)
CPT/HCPCS: 72220